=== PATIENT | male | born 1960 | race Caucasian/White ===

== ENCOUNTER 2016-08-09 13:56 | Emergency (ER) | payer OTHER ==
[2016-08-09] MEDS ORDERED: Adacel Vial IM ONE ×2 (14:15→14:25)
[2016-08-09] MEDS ORDERED: Marcaine 0.5% SDV 10 ML IJ ONE (14:15)
[2016-08-09] MEDS ORDERED: Marcaine 0.5% SDV 10 ML ONE (14:17)
[2016-08-09 14:18] VITALS: O2SAT 95
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
[2016-08-09] MEDS ORDERED: KEFZOL 1 GM IM ONE (15:00)
[2016-08-09] MEDS ORDERED: Sodium Chloride 0.9% 1000 ML 1,000 ML IV STA (15:04)
[2016-08-09] MEDS ORDERED: Sodium Chloride 0.9% 1000 ML 1,000 ML ONE (15:04)
--- NOTE | 2016-08-09 15:12 | XRAY ---
Indication: Pain following injury. Comparison: None 3 views of the left hand demonstrates nondisplaced comminuted fracture involving the distal shaft of the second metacarpal with soft tissue swelling. No other bony, articular, or soft tissue abnormalities.
[2016-08-09] MEDS ORDERED: KEFZOL 1 GM ONE (15:46)
[2016-08-09 16:20] VITALS: BP 145/101; PULSE 88
[2016-08-09] MEDS ORDERED: XYLOCAINE 1% HCL 20 ML MDV IJ ONE (16:40)
== END 2016-08-09 17:20 | disposition home or self-care (01) ==
LOC: ED 13:56
PROC: 0HQGXZZ Repair Left Hand Skin, External Approach (ICD-10-PCS; principal; 2016-08-09)
DX: S61.412A Laceration without foreign body of left hand, initial encounter (principal); W31.0XXA Contact with mining and earth-drilling machinery, initial encounter; Y92.64 Mine or pit as the place of occurrence of the external cause; Y99.0 Civilian activity done for income or pay
CPT/HCPCS: 12002; 73130; 80307; 90471; 90715; 96372; 99285; J0690